=== PATIENT | female | born 1955 | race Caucasian/White ===

== ENCOUNTER → 2024-12-17 | Outpatient (CLI) | payer MEDICARE ==
--- NOTE | 2024-12-17 10:04 | XR ---
EXAMINATION TYPE: XR chest 2V DATE OF EXAM: 12/17/2024 9:49 AM COMPARISON: None TECHNIQUE: XR chest 2V Frontal and lateral views of the chest. CLINICAL INDICATION:Female, 69 years old with history of [id number] OTHER SYMPTOMS; FINDINGS: Lungs/Pleura: There is flattening of the diaphragm with increased lucency of the lungs. No pneumothor ax. Blunting of the left costophrenic angle. Pulmonary vascularity: Unremarkable. Heart/mediastinum: Cardiomediastinal silhouette is prominent in size. Musculoskeletal: No acute osseous pathology. IMPRESSION: 1. Small to moderate left pleural effusion. 2. COPD changes. [facility], , 12/17/2024 10:01 AM
== END | disposition home or self-care (01) ==
LOC: RADXRYALE 09:39
PROVIDERS: ATTEND Physician Assistant
DX: J90 Pleural effusion, not elsewhere classified (principal); J44.9 Chronic obstructive pulmonary disease, unspecified; R09.89 Other specified symptoms and signs involving the circulatory and respiratory systems
CPT/HCPCS: 71046